=== PATIENT | female | born 1965 | race African-American/Black ===

== ENCOUNTER 2022-02-19 14:50 | Emergency (ER) | payer MEDICARE, OTHER ==
[~2022-02-19] VITALS: Ht 147.3 cm; Wt 82.0 kg
[2022-02-19 14:55] VITALS: BP 129/80
[2022-02-19] MEDS ORDERED: ALBUTEROL (0.083%) 2.5MG/3ML NEB HHN STA (15:01)
[2022-02-19] MEDS ORDERED: PREDNISONE 20MG TABLET PO STA (15:01)
[2022-02-19] MEDS ORDERED: IPRATROPIUM BROMIDE (0.02%) 0.5MG/2.5ML NEB HHN STA (15:01)
[2022-02-19 16:06] LABS: BASOPHILS % 0.3 % (0.0-2.0); EOSINOPHILS % 2.3 % (0.0-5.0); HEMATOCRIT. 36.6 % (36.0-48.0); HEMOGLOBIN. 11.7 g/dL (12.0-16.0); LYMPHOCYTES % 22.5 % (20.0-50.0); MEAN CORPUSCULAR HEMOGLOBIN 23.9 pg (28.0-32.0); MEAN CORPUSCULAR VOLUME 74.6 fL (81.0-99.0); MEAN PLATELET VOLUME 7.6 fl (7.4-10.4); MONOCYTES % 6.5 % (2.0-8.0); NEUTROPHILS % 68.4 % (40.0-76.0); PLATELET 519 x1000/uL (130-400); RED BLOOD CELL COUNT 4.91 mill/uL (4.2-5.4); RED CELL DISTRIBUTION WIDTH 18.8 % (11.6-14.6)
[2022-02-19 16:12] LABS: CHLORIDE 107 mEq/L (98-107)
[2022-02-19] MEDS ORDERED: IPRATROPIUM BROMIDE (0.02%) 0.5MG/2.5ML NEB ONE (16:49)
[2022-02-19] MEDS ORDERED: ALBUTEROL (0.083%) 2.5MG/3ML NEB ONE (16:49)
[2022-02-19] MEDS ORDERED: P50 MT (17:41)
[2022-02-19] MEDS ORDERED: ALBU6.7H9 INH (17:41)
== END 2022-02-19 17:53 | disposition home or self-care (01) ==
LOC: ER 14:50
DX: J44.1 Chronic obstructive pulmonary disease with (acute) exacerbation (principal); I10 Essential (primary) hypertension; Z20.822 Contact with and (suspected) exposure to COVID-19
CPT/HCPCS: 36415; 71045; 80053; 85025; 93005; 94640; 99285; J7512